=== PATIENT | female | born 1985 | race Caucasian/White ===

== ENCOUNTER 2017-01-09 05:41 | Day surgery (SDC) | payer OTHER ==
[2017-01-09] MEDS ORDERED: PEPCID ONE (07:05)
[2017-01-09] MEDS ORDERED: LR 1,000 ML ONE (07:05)
[2017-01-09] MEDS ORDERED: REGLAN ONE (07:05)
[2017-01-09] MEDS ORDERED: KEFZOL 1 GM/D5W 50 ML ONE (07:06)
[2017-01-09] MEDS ORDERED: NAROPIN 0.5% ONE (08:09)
[2017-01-09] MEDS ORDERED: VERSED ONE ×2 (08:09→08:16)
[2017-01-09] MEDS ORDERED: NEOSPORIN G.U. IRRIGANT ONE (10:23)
[2017-01-09] MEDS ORDERED: NS 1,000 ML ONE (13:23)
[2017-01-09] MEDS ORDERED: FENTANYL ONE (13:24)
[2017-01-09] MEDS ORDERED: DIPRIVAN 1% ONE (13:25)
[2017-01-09] MEDS ORDERED: DILAUDID ONE (13:31)
[2017-01-09] MEDS ORDERED: DECADRON ONE (13:33)
[2017-01-09] MEDS ORDERED: ZOFRAN ONE (13:33)
[2017-01-09] MEDS ORDERED: XYLOCAINE-MPF 2% ONE (13:33)
[2017-01-09] MEDS ORDERED: TYLENOL WITH CODEINE #3 PO PRN (14:59)
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
[2017-01-09] MEDS: OXY IR PO PRN ×3 (15:45→22:55)
[2017-01-09] MEDS ORDERED: ZOFRAN IV PRN (15:45)
[2017-01-09] MEDS ORDERED: PERICOLACE PO PRN (15:45)
[2017-01-09] MEDS: NS 1,000 ML IV SCH (16:52)
[2017-01-09] MEDS: NEURONTIN PO SCH (16:52)
[2017-01-09] MEDS: KEFZOL 1 GM/D5W 50 ML IV SCH ×2 (16:52→23:38)
[2017-01-09] MEDS: DILAUDID IV PRN ×3 (17:53→22:55)
[2017-01-09] MEDS: CATAFLAM PO SCH (20:24)
[2017-01-09] MEDS: PERIDEX MT SCH (20:24)
[2017-01-09] MEDS: ZANAFLEX PO SCH (20:25)
[2017-01-10] MEDS: DILAUDID IV PRN ×5 (01:02→10:34)
[2017-01-10] MEDS: OXY IR PO PRN ×3 (02:08→07:43)
[2017-01-10] MEDS: NS 1,000 ML IV SCH (05:27)
[2017-01-10] MEDS ORDERED: LOVENOX SUBQ SCH (06:00)
--- NOTE | 2017-01-10 07:23 | PROGRESS NOTE ---
DATE: 01/10/2017 SUBJECTIVE: Ms. Carrion lying in bed this morning. Pain seems well controlled. She did not get much sleep last night unfortunately though secondary to pain. The pain block wore off about 1:30 in the morning. OBJECTIVE: Right lower extremity exam, splint is clean, dry, and intact. She has good capillary refill to all the toes. She can dorsiflex and plantar flex the toes well, and she has good sensation to light touch to the toes. ASSESSMENT: Status post right ankle fusion. PLAN: The patient will be discharged home today. She will go home on OxyContin, Percocet and aspirin twice a day for DVT prophylaxis. I will see her in a week in the clinic.
--- NOTE | 2017-01-10 07:32 | DISCHARGE SUMMARY ---
ADMISSION DATE: 01/09/2017 DISCHARGE DATE: 01/10/2017 DISCHARGE MEDICATIONS: 1. OxyContin 30 mg extended release dispense 10. 2. Percocet 5 1-2 tabs dispensed #40. 3. Ecotrin 325 b.i.d. HOSPITAL COURSE: Ms. Carrion was admitted after her surgery yesterday for right ankle fusion and hardware removal of the talus. She did well since about 1:30 this morning when her pain block wore off. She did not get much sleep after that but the pain looks well controlled now. She will be discharged home today and I will see her in a week in the clinic.
[2017-01-10 07:39] VITALS: BP 116/66
[2017-01-10] MEDS: PERIDEX MT SCH (08:56)
[2017-01-10] MEDS: ZANAFLEX PO SCH (08:57)
[2017-01-10] MEDS: NEURONTIN PO SCH (08:58)
[2017-01-10] MEDS: CATAFLAM PO SCH (08:58)
[2017-01-10] MEDS ORDERED: WELLBUTRIN PO SCH (09:00)
== END 2017-01-10 10:41 | disposition home or self-care (01) ==
LOC: OPS 05:41 → UNDOADMOB 14:17 → 4N 14:17 → OPS 01-10 10:41 → UNDODISOB 01-10 10:41
PROVIDERS: ATTEND Orthopaedic Surgery
DX: T84.84XA Pain due to internal orthopedic prosthetic devices, implants and grafts, initial encounter (principal); M87.9 Osteonecrosis, unspecified; M19.171 Post-traumatic osteoarthritis, right ankle and foot; F17.210 Nicotine dependence, cigarettes, uncomplicated
CPT/HCPCS: 76000; 94761; 94799; J0690; J1100; J1170; J1650; J2250; J2405; J2795; J3010; J7030; J7120